=== PATIENT | male | born 1950 | race American Indian/Alaskan Native ===

== ENCOUNTER 2017-03-22 22:09 | Inpatient (IN) | payer MEDICARE ==
[2017-03-22 23:11] LABS: Hematocrit 49.2 % (35.5-45.6); Hemoglobin 15.7 gm/dl (11.8-15.2); Mean Corpuscular HGB Conc 32 % (32-34); Mean Corpuscular Hemoglobin 29 pg (28-32); Mean Corpuscular Volume 92 fl (84-94); Platelet Count 243 K/mm3 (140-440); Red Blood Count 5.34 M/mm3 (3.65-5.03); Red Cell Distribution Width 14.3 % (13.2-15.2); White Blood Count 11.1 K/mm3 (4.5-11.0)
[2017-03-22 23:12] LABS: Alanine Aminotransferase 22 units/L (7-56); Albumin 4.1 g/dL (3.9-5); Albumin/Globulin Ratio 0.9 %; Alkaline Phosphatase 71 units/L (35-129); Anion Gap 18 mmol/L; BUN/Creatinine Ratio 12; Blood Urea Nitrogen 14 mg/dL (9-20); Calcium 8.8 mg/dL (8.4-10.2); Carbon Dioxide 26 mmol/L (22-30); Chloride 101.7 mmol/L (98-107); Glucose 111 mg/dL (75-100); Lipase 9 units/L (13-60); Potassium 4.3 mmol/L (3.6-5.0); Sodium 141 mmol/L (137-145); Total Protein 8.8 g/dL (6.3-8.2)
[2017-03-22 23:57] LABS: Basophils % (Manual) 0 % (0.0-1.8); Blastocytes % (Manual) 0 %; Eosinophils % (Manual) 0 % (0.0-4.3); Platelet Estimate Consistent w Auto; RBC Morphology Normal
[2017-03-22 23:58] LABS: Diff Status Complete
[2017-03-23 01:33] LABS: Bilirubin,Urine NEG (Negative); Blood,Urine SM (Negative); Ketones,Urine NEG (Negative); Leukocyte Esterase,Urine SM (Negative); Mucus,Urine 1+ /HPF; Nitrite,Urine NEG (Negative); Urobilinogen,Urine < 2.0 mg/dL (<2.0)
[2017-03-23] MEDS ORDERED: ULTRAM PO ONE (03:29)
[2017-03-23] MEDS ORDERED: TORADOL IM ONE (03:29)
[2017-03-23] MEDS ORDERED: KEFLEX PO ONE (03:30)
--- NOTE | 2017-03-23 04:56 | Cat Scan Report ---
FINAL REPORT EXAM: CT ABDOMEN PELVIS WO CON HISTORY: anterior abdominal swelling TECHNIQUE: CT images obtained through the Abdomen and Pelvis without contrast. Transaxial,coronal and sagittal reformats are provided. PRIORS: None. FINDINGS: Imaged intrathoracic contents are unremarkable. Kidneys are normal in size, axis and position. No hydronephrosis or nephrolithiasis. The ureters are normal in course and caliber. No stones are seen within the urinary bladder. The liver, gallbladder, pancreas, spleen, and adrenal glands demonstrate an unremarkable noncontrast appearance. A periumbilical ventral hernia measuring up to 3.5 cm at the neck is present on axial series 3, image 104. Small bowel enters and exits the hernia sac. Proximal to the hernia there are multiple dilated fluid-filled loops of small bowel without adjacent edema identified. No pneumoperitoneum or ascites. Decompressed terminal ileum and colon. Normal appendix. No lymphadenopathy. Aorta is normal in course and caliber. Superficial soft tissues are otherwise unremarkable. No acute or aggressive appearing skeletal findings. IMPRESSION: Small-bowel obstruction with transition point in a periumbilical hernia measuring up to 3.5 cm at the neck. No pneumoperitoneum. Dr. Navarro discussed findings with Dr. Valdovinos at [address] on 03/23/2017 immediately following the examination.
[2017-03-23] MEDS ORDERED: DILAUDID IV ONE (04:58)
[2017-03-23] MEDS ORDERED: ATIVAN IV ONE (04:58)
[2017-03-23] MEDS ORDERED: DILAUDID ONE ×2 (05:03→07:22)
--- NOTE | 2017-03-23 05:23 | Emergency Department Report ---
ED Abdominal Pain HPI - General Chief Complaint: Abdominal Pain Stated Complaint: ABD PAIN Time Seen by Provider: 03/23/17 03:00 Source: patient Mode of arrival: Ambulatory Limitations: No Limitations - History of Present Illness Initial Comments: 66-year-old male with no past medical history presents also complains of right- sided abdominal pain and swelling. Patient has had swelling to his abdomen to the area to the right superior to his umbilicus test 6-7 months. The swelling increased and became harder over the last 3 days. Patient has been experiencing intermittent crampy abdominal pain for the last 3 days but denies nausea or vomiting. Patient is reporting that he has not had a bowel movement 3 days but did have a bowel movement last night. No complaints of fever or previous time surgeries. Patient has not seen a physician and a long time and presents here with elevated blood pressure. Severity scale (0 -10): 5 - Related Data Home Medications Medication Instructions Recorded Confirmed Last Taken No Known Home Medications [No 03/23/17 03/23/17 Unknown Reported Home Medications] Allergies Allergy/AdvReac Type Severity Reaction Status Date / Time No Known Allergies Allergy Unverified 03/22/17 22:14 ED Review of Systems ROS: Stated complaint: ABD PAIN Other details as noted in HPI Comment: All other systems reviewed and negative Other: Constitutional: No fevers chills Eyes: No eye pain visual changes ENT: No ear pain or throat pain Neck: Denies pain Respiratory: Denies cough wheezing shortness of breath Cardiovascular: Denies chest pain, palpitations, syncope GI: as per hpi : Denies dysuria Musculoskeletal: Denies back pain, joint swelling Skin: Denies rash, lesions, erythema Neurologic: Denies headache, numbness, weakness Psychiatric: Denies suicidal ideation, hallucinations ED Past Medical Hx - Past Medical History Previous Medical History?: No - Surgical History Past Surgical History?: No - Social History Smoking Status: Never Smoker Substance Use Type: None - Medications Home Medications: Home Medications Medication Instructions Recorded Confirmed Last Taken Type No Known Home Medications [No 03/23/17 03/23/17 Unknown History Reported Home Medications] ED Physical Exam - General Limitations: No Limitations - Other Other exam information: General: No limitations, patient is alert in no acute distress Head exam: Atraumatic, normocephalic Eyes exam: Normal appearance, pupils equal reactive to light, extraocular movements intact ENT: Moist mucous membrane, normal oropharynx Neck exam: Normal inspection, full range of motion, no meningismus nontender Respiratory exam: Clear to auscultation bilateral, no wheezes, rales, crackles Cardiovascular: Normal rate and rhythm, normal heart sounds Abdomen: Soft, nondistended, palpable hernia to the right superior aspect of the umbilicus that is firm. Minimal tenderness to palpation. Unable to reduce initially Extremity: Full range of motion normal inspection no deformity Back: Normal Inspection, full range of motion, no tenderness Neurologic: Alert, oriented x3, cranial nerves intact, no motor or sensory deficit Psychiatric: normal affect, normal mood Skin: Warm, dry, intact ED Course Vital Signs 03/22/17 03/23/17 03/23/17 22:13 04:28 06:39 Temperature 98.6 F 98.3 F 98.2 F Pulse Rate 93 H 87 85 Respiratory 18 18 16 Rate Blood Pressure 190/84 Blood Pressure 155/87 140/85 [Right] O2 Sat by Pulse 99 95 98 Oximetry 03/23/17 03/23/17 03/23/17 09:41 09:45 09:50 Temperature 97.5 F L Pulse Rate 79 78 76 Respiratory 14 16 16 Rate Blood Pressure 143/70 143/70 146/68 Blood Pressure [Right] O2 Sat by Pulse 94 95 95 Oximetry 03/23/17 03/23/17 03/23/17 09:55 10:00 10:15 Temperature 98.0 F Pulse Rate 75 72 77 Respiratory 16 16 18 Rate Blood Pressure 140/79 138/66 139/74 Blood Pressure [Right] O2 Sat by Pulse 97 97 99 Oximetry 03/23/17 03/23/17 03/23/17 10:30 10:45 10:50 Temperature 98.4 F Pulse Rate 72 78 75 Respiratory 18 18 18 Rate Blood Pressure 148/71 146/75 143/73 Blood Pressure [Right] O2 Sat by Pulse 99 98 95 Oximetry 03/23/17 03/23/17 03/23/17 11:10 11:16 11:48 Temperature 98.7 F 98.7 F 97.3 F L Pulse Rate 73 73 Respiratory 18 18 18 Rate Blood Pressure 139/73 139/73 Blood Pressure 139/73 [Right] O2 Sat by Pulse 96 96 Oximetry 03/23/17 03/23/17 03/23/17 14:55 15:57 19:13 Temperature 98.6 F 98.8 F Pulse Rate 74 76 73 Respiratory 18 20 Rate Blood Pressure 170/82 Blood Pressure 116/44 [Right] O2 Sat by Pulse 95 92 Oximetry 03/23/17 03/23/17 03/23/17 22:17 22:20 22:21 Temperature 99.0 F Pulse Rate 71 69 Respiratory 20 18 Rate Blood Pressure 141/65 Blood Pressure [Right] O2 Sat by Pulse 94 96 Oximetry - Reevaluation(s) Reevaluation #1: 03/23/17 05:28 CT performed to confirm indeed a patient has a hernia. A bowel loop was identified at the umbilical hernia causing secondary signs of bowel obstruction. Patient medicated with Ativan 0.5 mg and Dilaudid 0.5 mg. Firm pressure held and I was able to fully reduce hernia with resolution and abdominal discomfort. - Consultations Consultation #1: 03/23/17 05:[address] Samaniego prior to second reduction attempt. The patient was medicated I was able to reduce umbilical hernia. Attempted to re-page Danette and still awaiting callback. Consultation #2: 03/23/17 06:[address] Samaniego called back. I have not informed hospitalist of admission at this time because patient did not require urgent surgery. This used to the discretion of the surgeon. Dr Panchal informed to treat patient with Keflex for urinary leukocytosis if the patient is discharged home otherwise , hospitalist will need to be informed of admission. ED Medical Decision Making - Lab Data Result diagrams: 03/22/17 22:32 03/22/17 22:32 Lab Results 03/22/17 03/22/17 03/23/17 Range/Units 22:32 22:32 01:14 WBC 11.1 H (4.5-11.0) K/mm3 RBC 5.34 H (3.65-5.03) M/mm3 Hgb 15.7 H (11.8-15.2) gm/dl Hct 49.2 H (35.5-45.6) % MCV 92 (84-94) fl MCH 29 (28-32) pg MCHC 32 (32-34) % RDW 14.3 (13.2-15.2) % Plt Count 243 (140-440) K/mm3 Lymph # Finish Off Operator Add Manual Diff Complete Total Counted 100 Seg Neutrophils % Finish Off Operator Seg Neuts % (Manual) 35.0 L (40.0-70.0) % Band Neutrophils % 0 % Lymphocytes % (Manual) 55.0 H (13.4-35.0) % Reactive Lymphs % (Man) 0 % Monocytes % (Manual) 10.0 H (0.0-7.3) % Eosinophils % (Manual) 0 (0.0-4.3) % Basophils % (Manual) 0 (0.0-1.8) % Metamyelocytes % 0 % Myelocytes % 0 % Promyelocytes % 0 % Blast Cells % 0 % Nucleated RBC % Not Reportable Seg Neutrophils # Man 3.9 (1.8-7.7) K/mm3 Band Neutrophils # 0.0 K/mm3 Lymphocytes # (Manual) 6.1 H (1.2-5.4) K/mm3 Abs React Lymphs (Man) 0.0 K/mm3 Monocytes # (Manual) 1.1 H (0.0-0.8) K/mm3 Eosinophils # (Manual) 0.0 (0.0-0.4) K/mm3 Basophils # (Manual) 0.0 (0.0-0.1) K/mm3 Metamyelocytes # 0.0 K/mm3 Myelocytes # 0.0 K/mm3 Promyelocytes # 0.0 K/mm3 Blast Cells # 0.0 K/mm3 WBC Morphology Not Reportable Hypersegmented Neuts Not Reportable Hyposegmented Neuts Not Reportable Hypogranular Neuts Not Reportable Smudge Cells Not Reportable Toxic Granulation Not Reportable Toxic Vacuolation Not Reportable Dohle Bodies Not Reportable Pelger-Huet Anomaly Not Reportable Brodie Rods Not Reportable Platelet Estimate Consistent w auto Clumped Platelets Not Reportable Plt Clumps, EDTA Not Reportable Large Platelets Not Reportable Giant Platelets Not Reportable Platelet Satelliting Not Reportable Plt Morphology Comment Not Reportable RBC Morphology Normal Dimorphic RBCs Not Reportable Polychromasia Not Reportable Hypochromasia Not Reportable Poikilocytosis Not Reportable Anisocytosis Not Reportable Microcytosis Not Reportable Macrocytosis Not Reportable Spherocytes Not Reportable Pappenheimer Bodies Not Reportable Sickle Cells Not Reportable Target Cells Not Reportable Tear Drop Cells Not Reportable Ovalocytes Not Reportable Helmet Cells Not Reportable Martins-Bayside Bodies Not Reportable [place] Rings Not Reportable [place] Cells Not Reportable Bite Cells Not Reportable Crenated Cell Not Reportable Elliptocytes Not Reportable Acanthocytes (Spur) Not Reportable Rouleaux Not Reportable Hemoglobin C Crystals Not Reportable Schistocytes Not Reportable Malaria parasites Not Reportable Silvano Bodies Not Reportable Hem Pathologist Commnt No Sodium 141 (137-145) mmol/L Potassium 4.3 (3.6-5.0) mmol/L Chloride 101.7 (98-107) mmol/L Carbon Dioxide 26 (22-30) mmol/L Anion Gap 18 mmol/L BUN 14 (9-20) mg/dL Creatinine 1.2 (0.8-1.5) mg/dL Estimated GFR > 60 ml/min BUN/Creatinine Ratio 12 % Glucose 111 H (75-100) mg/dL Calcium 8.8 (8.4-10.2) mg/dL Total Bilirubin 0.40 (0.1-1.2) mg/dL AST 25 (5-40) units/L ALT 22 (7-56) units/L Alkaline Phosphatase 71 (35-129) units/L Total Protein 8.8 H (6.3-8.2) g/dL Albumin 4.1 (3.9-5) g/dL Albumin/Globulin Ratio 0.9 % Lipase 9 L (13-60) units/L Urine Color Yellow (Yellow) Urine Turbidity Clear (Clear) Urine pH 5.0 (5.0-7.0) Ur Specific [place] 1.027 (1.003-1.030) Urine Protein 100 mg/dl (Negative) mg/dL Urine Glucose (UA) Neg (Negative) mg/dL Urine Ketones Neg (Negative) mg/dL Urine Blood Sm (Negative) Urine Nitrite Neg (Negative) Urine Bilirubin Neg (Negative) Urine Urobilinogen < 2.0 (<2.0) mg/dL Ur Leukocyte Esterase Sm (Negative) Urine WBC (Auto) 22.0 H (0.0-6.0) /HPF Urine RBC (Auto) 3.0 (0.0-6.0) /HPF U Epithel Cells (Auto) 5.0 (0-13.0) /HPF Hyaline Casts 2 /LPF Urine Mucus 1+ /HPF - Radiology Data Radiology results: report reviewed (CT abdomen and pelvis without contrast: small bowel obstruction with transition point in the. Umbilical hernia measured 3.5 at the neck. No pneumoperitoneum) - Medical Decision Making s/o to Dr Panchal. awaiting surgeon dispo Discharged patient would need Keflex for UTI and recommend Norvasc 5 mg for elevated blood pressure. Outpatient follow-up will be needed - Differential Diagnosis lipoma, hernia incarcerated versus strangulated Critical Care Time: No Critical care attestation.: If time is entered above; I have spent that time in minutes in the direct care of this critically ill patient, excluding procedure time. ED Disposition Clinical Impression: Periumbilical hernia, HTN (hypertension) Disposition: OP ADMIT IP TO THIS HOSP Is pt being admited?: Yes Condition: Stable Time of Disposition: 06:24
--- NOTE | 2017-03-23 07:12 | Anesthesia Consultation ---
Anesthesia Consult and Med Hx Date of service: 03/23/17 - Airway Anesthetic Teeth Evaluation: Good ROM Head & Neck: Adequate Mental/Hyoid Distance: Adequate Mallampati Class: Class II Intubation Access Assessment: Probably Good - Pulmonary Exam CTA: Yes - Cardiac Exam Cardiac Exam: RRR - Pre-Operative Health Status ASA Pre-Surgery Classification: ASA2 Proposed Anesthetic Plan: General - Pulmonary Hx Smoking: Yes - Cardiovascular System Hx Hypertension: No - Endocrine Hx Non-Insulin Dependent Diabetes: No - Other Systems Hx Obesity: Yes
[2017-03-23] MEDS ORDERED: DILAUDID IV PRN (07:13)
--- NOTE | 2017-03-23 07:13 | Anesthesia Day of Surgery ---
Anesthesia Day of Surgery - Day of Surgery Patient Examined: Yes Patient H&P Reviewed: Yes Patient is NPO: Yes
[2017-03-23] MEDS ORDERED: XYLOCAINE MPF 2% ONE (07:22)
[2017-03-23] MEDS ORDERED: NACL 0.9% 1000 ML 1,000 ML ONE (07:22)
[2017-03-23] MEDS ORDERED: DIPRIVAN 10 MG/ML IV ONE (07:22)
[2017-03-23] MEDS ORDERED: ZEMURON IV ONE (07:22)
[2017-03-23] MEDS ORDERED: ZOFRAN IV PRN ×2 (07:30→11:26)
[2017-03-23] MEDS ORDERED: ANCEF ONE (07:50)
--- NOTE | 2017-03-23 08:59 | History and Physical Report ---
ADMITTING DIAGNOSIS: Small-bowel obstruction secondary to incarcerated ventral hernia. HISTORY OF PRESENT ILLNESS: The patient tires 66-year-old gentleman who is somewhat of a poor historian. States he has been complaining of abdominal pain thus the reason for his arrival to the ER. PAST MEDICAL HISTORY: He states he has had no past medical history. PAST SURGICAL HISTORY: Also negative. ALLERGIES: No known allergies. MEDICATIONS: No medications. FAMILY HISTORY: Negative. SOCIAL HISTORY: Smokes a pack a day for approximately 40 years. Denies any ethanol intake. REVIEW OF SYSTEMS: Noncontributory. PHYSICAL EXAMINATION: GENERAL: At this time reveals the patient's power to be awake, alert, cooperative, in moderate discomfort, but no acute distress. VITAL SIGNS: Shown him to be afebrile with a temperature of 98.2, blood pressure 140/85, pulse of 85, respirations of 16. HEENT: Pupils are equal and reactive to light and accommodation. Sclerae is nonicteric. NECK: Supple, no thyromegaly or adenopathy. CHEST: Lungs clear to auscultation and percussion. HEART: Normal sinus rhythm. No gross murmurs. ABDOMEN: Reveals an incarcerated ventral hernia approximately 3-4 cm above the umbilicus. However, I was able to reduce the hernia on gentle deep palpation. Bowel sounds are present. EXTREMITIES: Show range of motion x 4, no edema or cyanosis. NEUROLOGIC: Grossly within normal limits. LABORATORY DATA: Lab work at present includes a CBC which shows a white count of 11.1, H and H is 15 and 49. Electrolytes are essentially within normal limits. LFTs are also essentially normal. A CT scan of the abdomen was performed, which revealed an incarcerated ventral hernia with small bowel obstruction. IMPRESSION: Incarcerated hernia, which I have just reduced. PLAN: To proceed with emergency diagnostic laparoscopy. We will inspect the bowel. Also we will proceed with laparoscopic ventral hernia repair with mesh, possible open exploratory laparotomy and hernia repair. Also, possible bowel resection. Risks, indications, and complications have been reviewed with the patient who understands and has signed his consent. JOB# [id number] FP/NTS
[2017-03-23] MEDS ORDERED: ROBINUL ONE (09:08)
[2017-03-23] MEDS ORDERED: MARCAINE-EPI/PF 0.5%-1:200,000 INFILTRATI ONE ×2 (09:08→09:11)
[2017-03-23] MEDS ORDERED: ZOFRAN ONE (09:08)
[2017-03-23] MEDS ORDERED: NEOSTIGMINE ONE (09:08)
[2017-03-23] MEDS ORDERED: DECADRON ONE (09:09)
[2017-03-23] MEDS ORDERED: MARCAINE-EPI 0.5%-1:200,000 INFILTRATI ONE (09:30)
--- NOTE | 2017-03-23 10:27 | Post Anesthesia Evaluation ---
- Post Anesthesia Evaluation Patient Participated: Yes Airway Patent: Yes Stable Respiratory Function: Yes Nausea/Vomiting: No Temp > 96.8F: Yes Pain Manageable: Yes Adequeate Hydration: Yes Anesthesia Complications: No Block Receding Appropriately: Not Applicable Patient on Ventilator: No
--- NOTE | 2017-03-23 10:56 | Operative Report ---
PREOPERATIVE DIAGNOSIS: Incarcerated ventral hernia. POSTOPERATIVE DIAGNOSIS: Incarcerated ventral hernia. PROCEDURE: 1. Diagnostic laparoscopy. 2. Reduction of incarcerated ventral hernia. 3. Partial omentectomy. 4. Ventral hernia repair with mesh. SURGEON: Blas Samaniego M.D. ANESTHESIA: General. ESTIMATED BLOOD LOSS: Minimal. DRAINS: None. COMPLICATIONS: None. DESCRIPTION OF PROCEDURE: The patient was taken to the operating room, prepped and draped in usual sterile fashion. A Veress needle was inserted and CO2 insufflation begun. A 5 mm trocar was then inserted and camera inserted. Inspection of the area revealed an incarcerated ventral hernia, which involved omentum. Apparently on CT scan, the hernia also involved small bowel causing partial bowel obstruction, but I was able to reduce this preoperatively. The bowel was then carefully inspected and noted to be pink with good peristalsis. Two other 5 mm ports were then inserted. Harmonic scalpel used to slowly dissect the omentum. There was a fairly large portion of omentum that was incarcerated and eventually an open incision had to be made anteriorly to remove all the incarcerated omentum. This was sent as a specimen along with portions of the hernia sac. Once again after completion of dissecting the omentum, a midline incision was made, omentum was removed. This required more extensive dissection with electrocautery in the subcutaneous area down to the fascia. A #1 Nurolon sutures were then used to repair the hernia anteriorly. The middle portions of the sutures were left open so that a 10 mm trocar could be reinserted. Ventralex mesh was then placed through the trocar and slowly brought back snug to the peritoneum. Two other final sutures anteriorly were then close to complete a seal. Abdomen was once again reinflated. The mesh was tacked throughout the peritoneum with absorbable tackers. Once again, the intraabdominal omentum and site of dissection was inspected. No bleeding or oozing noted. The bowel was also noted to be within normal limits. The 5 mm trocars were then removed under direct visualization. The final 5 mm port was used to expel the CO2 and the trocar removed. The skin at all port sites was closed with subcuticular 4-0 Vicryl. A 0.5% Marcaine was infiltrated over the port site for postoperative pain relief. The ventral hernia site subcutaneous was also closed with interrupted 3-0 Vicryl and the skin closed subcuticularly. Fluffs and pressure dressings applied. Abdominal binder will also be placed. The patient tolerated the procedure well and left OR in stable condition. JOB# [id number] JULIO/PANDA
[2017-03-23] MEDS ORDERED: MORPHINE IV PRN (11:26)
[2017-03-23] MEDS: D5W/0.45% NACL/KCL 30 MEQ 30 MEQ/1,000 ML BAG IV SCH ×2 (13:38→21:48)
[2017-03-23] MEDS: ANCEF/NS 1 GM/50 ML 1 GM/50 ML BAG IV SCH (16:00)
[2017-03-24] MEDS: ANCEF/NS 1 GM/50 ML 1 GM/50 ML BAG IV SCH (00:50)
[2017-03-24 04:01] LABS: Basophils % (Auto) 0.2 % (0.0-1.8); Eosinophils % (Auto) 0.1 % (0.0-4.3); Hematocrit 44.1 % (35.5-45.6); Hemoglobin 14.5 gm/dl (11.8-15.2); Mean Corpuscular HGB Conc 33 % (32-34); Mean Corpuscular Hemoglobin 30 pg (28-32); Mean Corpuscular Volume 92 fl (84-94); Platelet Count 202 K/mm3 (140-440); Red Blood Count 4.81 M/mm3 (3.65-5.03); Red Cell Distribution Width 14.9 % (13.2-15.2); White Blood Count 13.8 K/mm3 (4.5-11.0)
[2017-03-24 04:20] LABS: Alanine Aminotransferase 16 units/L (7-56); Albumin 3.4 g/dL (3.9-5); Albumin/Globulin Ratio 0.8 %; Alkaline Phosphatase 59 units/L (35-129); Anion Gap 15 mmol/L; BUN/Creatinine Ratio 15; Blood Urea Nitrogen 16 mg/dL (9-20); Calcium 8.1 mg/dL (8.4-10.2); Carbon Dioxide 23 mmol/L (22-30); Chloride 104.3 mmol/L (98-107); Glucose 119 mg/dL (75-100); Potassium 4.5 mmol/L (3.6-5.0); Sodium 138 mmol/L (137-145); Total Protein 7.6 g/dL (6.3-8.2)
[2017-03-24] MEDS: D5W/0.45% NACL/KCL 30 MEQ 30 MEQ/1,000 ML BAG IV SCH ×2 (06:11→18:10)
--- NOTE | 2017-03-24 09:19 | Consultation ---
<MILVIA VOGT - Last Filed: 03/24/17 09:59> History of Present Illness - Reason for Consult Consult date: 03/24/17 hypertension Requesting physician: KYA FREGOSO - History of Present Illness Patient is a 66 years old black Tracie Mamie with past medical history of hypertension, who was consulted form general surgery to us for medical management of hypertension. Patient has had diagnostic laparoscopy, reduction of incarcerated venteral hernia. partial omentectomy and ventral hernia repair with mesh.This procedure occurred on 03/23/2017. Patient tolerated the procedure well and postoperatively, he is stable. Patient denies fever, chills chest pain, headache. Patient rates surgical area pain and rates her pain 3/10 at present time. Past History Past Medical History: hypertension, other (Ventral hernia ) Past Surgical History: No surgical history Social history: smoking. denies: alcohol abuse Family history: diabetes, hypertension Medications and Allergies Allergies Allergy/AdvReac Type Severity Reaction Status Date / Time No Known Allergies Allergy Unverified 03/22/17 22:14 Home Medications Medication Instructions Recorded Confirmed Last Taken Type No Known Home Medications [No 03/23/17 03/23/17 Unknown History Reported Home Medications] Active Meds: Active Medications Potassium Chloride/Dextrose/Sod Cl (D5w/0.45% Nacl/Kcl 30 Meq) 30 meq in 1,000 mls @ 125 mls/hr IV DIRECT VINAY Last Admin: 03/24/17 06:11 Dose: 125 mls/hr Morphine Sulfate (Morphine) 3 mg IV Q3H PRN PRN Reason: Pain, Moderate (4-6) Ondansetron HCl (Zofran) 4 mg IV Q4H PRN PRN Reason: N/V unrelieved by Reglan Review of Systems Constitutional: no weight loss, no weight gain, no fever, no chills, no sweats Ears, nose, mouth and throat: no decreased hearing, no nose pain, no nasal congestion, no nasal discharge Cardiovascular: no chest pain, no orthopnea, no palpitations, no rapid/ irregular heart beat, no edema Respiratory: no cough with sputum, no excessive sputum, no hemoptysis, no shortness of breath Gastrointestinal: no nausea, no vomiting, no diarrhea, no constipation, no change in bowel habits Genitourinary Male: no flank pain, no discharge, no urinary frequency Rectal: no incontinence, no bleeding Musculoskeletal: no neck stiffness, no shooting arm pain, no arm numbness/ tingling Integumentary: no rash, no pruritis, no redness, no sores Neurological: no paralysis, no weakness, no parathesias, no numbness Psychiatric: no anxiety, no memory loss, no change in sleep habits Endocrine: no polyphagia, no excessive thirst, no polydipsia, no polyuria Hematologic/Lymphatic: no easy bruising, no easy bleeding Allergic/Immunologic: no urticaria, no allergic rhinitis Exam - Constitutional Vitals: Temp Pulse Resp BP Pulse Ox 98.2 F 71 18 140/67 95 03/24/17 08:13 03/24/17 09:11 03/24/17 08:13 03/24/17 09:09 03/24/17 09:11 General appearance: Present: no acute distress - EENT Eyes: Present: PERRL ENT: hearing intact - Neck Neck: Present: supple - Respiratory Respiratory effort: normal Respiratory: bilateral: CTA - Cardiovascular Heart rate: 71 Rhythm: regular Heart Sounds: Present: S1 & S2 - Abdominal General gastrointestinal: Present: soft, tender, other (surgical incision with gauze dressing) Localized gastrointestinal: tender: RUQ, RLQ Male genitourinary: Present: deferred - Rectal Rectal Exam: deferred - Integumentary Integumentary: Present: clear, warm, dry - Musculoskeletal Musculoskeletal: strength equal bilaterally - Psychiatric Psychiatric: appropriate mood/affect - Neurologic Neurologic: CNII-XII intact - Allied Health Allied health notes reviewed: nursing Results - Labs CBC & Chem 7: 03/24/17 03:26 03/24/17 03:26 Labs: Abnormal lab results 03/24/17 03/24/17 Range/Units 03:26 03:26 WBC 13.8 H (4.5-11.0) K/mm3 [place] % (Auto) 8.7 H (0.0-7.3) % [place] # 1.2 H (0.0-0.8) K/mm3 Seg Neutrophils % 71.0 H (40.0-70.0) % Seg Neutrophils # 9.8 H (1.8-7.7) K/mm3 Glucose 119 H (75-100) mg/dL Calcium 8.1 L (8.4-10.2) mg/dL Albumin 3.4 L (3.9-5) g/dL Assessment and Plan Patient is a 66 years old Togol[place] female with past medical history of hypertension, , who was consulted form general surgery to us for medical management of hypertension. Patient has had diagnostic laparoscopy, reduction of incarcerated venteral hernia. partial omentectomy and ventral hernia repair with mesh. ASSESSMENT/PLAN Hypertension Started on Norvasc 5 mg daily IV hydralazine for SBP> 160 Closely monitor blood pressure S/P ventral hernia repair with mesh Patient POD #1 Managed by General surgery Morbid obesity with BMI>40 Discussed about the importance of weight reduction, physical exercise, low-fat diet reducing intake of high-fat foods to improve cardiovascular disease. Tobacco abuse Smoking cessation counseling done. Patient strongly advised to quit. DVT prophylaxis Lovenox <MALOU HUITRON - Last Filed: 03/25/17 09:22> Medications and Allergies Active Meds: Active Medications Acetaminophen/Hydrocodone Bitart ([place] 5/325) 1 each PO Q4H PRN PRN Reason: Pain, Moderate (4-6) Amlodipine Besylate (Norvasc) 5 mg PO QDAY [facility] Last Admin: 03/24/17 18:30 Dose: Not Given Docusate Sodium (Colace) 100 mg PO BID [facility] Last Admin: 03/24/17 22:10 Dose: Not Given Enoxaparin Sodium (Lovenox) 40 mg SUB-Q QDAY@2200 [facility] Last Admin: 03/24/17 22:05 Dose: Not Given Potassium Chloride/Dextrose/Sod Cl (D5w/0.45% Nacl/Kcl 30 Meq) 30 meq in 1,000 mls @ 125 mls/hr IV DIRECT [facility] Last Admin: 03/25/17 03:49 Dose: 125 mls/hr Levofloxacin (Levaquin) 500 mg PO Q24HR [facility] Morphine Sulfate (Morphine) 3 mg IV Q3H PRN PRN Reason: Pain, Moderate (4-6) Ondansetron HCl (Zofran) 4 mg IV Q4H PRN PRN Reason: N/V unrelieved by Reglan Exam - Constitutional Vitals: Temp Pulse Resp BP Pulse Ox 99.5 F 66 20 148/73 96 03/25/17 07:40 03/25/17 07:41 03/25/17 07:40 03/25/17 07:40 03/25/17 07:41 Results - Labs CBC & Chem 7: 03/24/17 03:26 03/24/17 03:26 Assessment and Plan I saw and evaluated the patient. I agree with the findings and the plan of care as documented in the Nurse Practitioner's~note, with the following corrections and additions. ADD acute cystitis. Complex. Start on rocephin IV
--- NOTE | 2017-03-24 12:29 | Progress Note ---
Assessment and Plan POD #1 Pt feeling well. no specific compl Abd obese soft hypoactive BS Dressings dry stable ice chips & po meds ambulation Selected Entries 03/24/17 12:13 Temperature 98.9 F Pulse Rate 75 Respiratory 18 Rate Blood Pressure 141/68 [Right] Laboratory Tests 03/22/17 03/24/17 03/24/17 22:32 03:26 03:26 WBC 11.1 H 13.8 H Hgb 15.7 H 14.5 Hct 49.2 H 44.1 Sodium 138 Potassium 4.5 Chloride 104.3 Carbon Dioxide 23 BUN 16 Creatinine 1.1 Objective Vital Signs - 12hr 03/24/17 03/24/17 03/24/17 04:20 04:23 08:13 Temperature 98.6 F 98.2 F Pulse Rate 103 H Respiratory 18 18 Rate Blood Pressure 146/68 140/67 Blood Pressure [Right] O2 Sat by Pulse 97 Oximetry 03/24/17 03/24/17 03/24/17 09:09 09:11 12:10 Temperature Pulse Rate 71 66 Respiratory Rate Blood Pressure Blood Pressure 140/67 [Right] O2 Sat by Pulse 95 100 Oximetry 03/24/17 12:13 Temperature 98.9 F Pulse Rate 75 Respiratory 18 Rate Blood Pressure Blood Pressure 141/68 [Right] O2 Sat by Pulse Oximetry - Labs 03/24/17 03:26 03/24/17 03:26 Diabetes panel 03/24/17 Range/Units 03:26 Sodium 138 (137-145) mmol/L Potassium 4.5 (3.6-5.0) mmol/L Chloride 104.3 (98-107) mmol/L Carbon Dioxide 23 (22-30) mmol/L BUN 16 (9-20) mg/dL Creatinine 1.1 (0.8-1.5) mg/dL Glucose 119 H (75-100) mg/dL Calcium 8.1 L (8.4-10.2) mg/dL AST 20 (5-40) units/L ALT 16 (7-56) units/L Alkaline Phosphatase 59 (35-129) units/L Total Protein 7.6 (6.3-8.2) g/dL Albumin 3.4 L (3.9-5) g/dL Calcium panel 03/24/17 Range/Units 03:26 Calcium 8.1 L (8.4-10.2) mg/dL Albumin 3.4 L (3.9-5) g/dL Pituitary panel 03/24/17 Range/Units 03:26 Sodium 138 (137-145) mmol/L Potassium 4.5 (3.6-5.0) mmol/L Chloride 104.3 (98-107) mmol/L Carbon Dioxide 23 (22-30) mmol/L BUN 16 (9-20) mg/dL Creatinine 1.1 (0.8-1.5) mg/dL Glucose 119 H (75-100) mg/dL Calcium 8.1 L (8.4-10.2) mg/dL Adrenal panel 03/24/17 Range/Units 03:26 Sodium 138 (137-145) mmol/L Potassium 4.5 (3.6-5.0) mmol/L Chloride 104.3 (98-107) mmol/L Carbon Dioxide 23 (22-30) mmol/L BUN 16 (9-20) mg/dL Creatinine 1.1 (0.8-1.5) mg/dL Glucose 119 H (75-100) mg/dL Calcium 8.1 L (8.4-10.2) mg/dL Total Bilirubin 0.50 (0.1-1.2) mg/dL AST 20 (5-40) units/L ALT 16 (7-56) units/L Alkaline Phosphatase 59 (35-129) units/L Total Protein 7.6 (6.3-8.2) g/dL Albumin 3.4 L (3.9-5) g/dL
[2017-03-24] MEDS: COLACE PO SCH ×2 (15:25→22:10)
[2017-03-24] MEDS: NORVASC PO SCH (18:30)
[2017-03-24] MEDS: LOVENOX SUB-Q SCH ×2 (21:17→22:05)
[2017-03-25] MEDS: D5W/0.45% NACL/KCL 30 MEQ 30 MEQ/1,000 ML BAG IV SCH (03:49)
[2017-03-25] MEDS ORDERED: LEVAQUIN PO SCH (10:00)
[2017-03-25] MEDS: COLACE PO SCH ×2 (10:25→21:09)
[2017-03-25] MEDS: NORVASC PO SCH (10:25)
[2017-03-25] MEDS: ROCEPHIN/NS 1 GM/50 ML 1 GM/50 ML BAG IV SCH (10:26)
--- NOTE | 2017-03-25 11:19 | Progress Note ---
Assessment and Plan POD #2 Pt sitting in chair. feeling well. +flatus ambulated Abd soft. stable cl liq diet Selected Entries 03/25/17 03/25/17 07:40 07:41 Temperature 99.5 F Pulse Rate 66 Blood Pressure 148/73 Objective Vital Signs - 12hr 03/25/17 03/25/17 03/25/17 06:18 07:40 07:41 Temperature 99.6 F 99.5 F Pulse Rate 62 64 66 Respiratory 16 20 Rate Blood Pressure 148/73 Blood Pressure 137/54 [Right] O2 Sat by Pulse 97 96 96 Oximetry - Labs 03/24/17 03:26 03/24/17 03:26
--- NOTE | 2017-03-25 14:25 | Progress Note ---
Assessment and Plan Assessment and plan: Patient is a 66 years old female with past medical history of hypertension, , who was consulted form general surgery to us for medical management of hypertension. Patient has had diagnostic laparoscopy, reduction of incarcerated venteral hernia. partial omentectomy and ventral hernia repair with mesh. ASSESSMENT/PLAN Hypertension Continue Norvasc 5 mg daily IV hydralazine for SBP> 160 Closely monitor blood pressure S/P ventral hernia repair with mesh Patient POD #2 Managed by General surgery Morbid obesity with BMI>40 Discussed about the importance of weight reduction, physical exercise, low-fat diet reducing intake of high-fat foods to improve cardiovascular disease. Nutrition consult Tobacco abuse Smoking cessation counseling done. Patient strongly advised to quit. Acute cystitis. Complex. Start on rocephin IV Metal Health Illness Continue Psych management outpatient. DVT prophylaxis Lovenox Stable from Medical stand point for discharge History Interval history: Patient seen and examined in no acute distress. spoke to the sister, who states that the patient has multiple psych history and has been refusing medical care. Hospitalist Physical - Physical exam Narrative exam: VITAL SIGNS: Reviewed. GENERAL: The patient appeared well nourished and normally developed. Vital signs as documented. HEAD: No signs of head trauma. EYES: Pupils are equal. Extraocular motions intact. EARS: Hearing grossly intact. MOUTH: Oropharynx is normal. NECK: No adenopathy, no JVD. CHEST: Chest with clear breath sounds bilaterally. No wheezes, rales, or rhonchi. CARDIAC: Regular rate and rhythm. S1 and S2, without murmurs, gallops, or rubs. VASCULAR: No Edema. Peripheral pulses normal and equal in all extremities. ABDOMEN: surgical incision with gauze dressing, hypoactive BS. No drainage noted MUSCULOSKELETAL: Good range of motion of all major joints. Extremities without clubbing, cyanosis or edema. NEUROLOGIC EXAM: Alert and oriented x 3. No focal sensory or strength deficits. Speech normal. Follows commands. PSYCHIATRIC: Mood normal. SKIN: No rash or lesions. - Constitutional Vitals: Temp Pulse Resp BP Pulse Ox 99.5 F 67 20 141/60 97 03/25/17 13:00 03/25/17 12:59 03/25/17 07:40 03/25/17 12:59 03/25/17 12:59 General appearance: Present: no acute distress Results - Labs CBC & Chem 7: 03/24/17 03:26 03/24/17 03:26 Labs: Laboratory Last Values WBC 13.8 K/mm3 (4.5-11.0) H 03/24/17 03:26 RBC 4.81 M/mm3 (3.65-5.03) 03/24/17 03:26 Hgb 14.5 gm/dl (11.8-15.2) 03/24/17 03:26 Hct 44.1 % (35.5-45.6) 03/24/17 03:26 MCV 92 fl (84-94) 03/24/17 03:26 MCH 30 pg (28-32) 03/24/17 03:26 MCHC 33 % (32-34) 03/24/17 03:26 RDW 14.9 % (13.2-15.2) 03/24/17 03:26 Plt Count 202 K/mm3 (140-440) 03/24/17 03:26 Lymph % (Auto) 20.0 % (13.4-35.0) 03/24/17 03:26 [place] % (Auto) 8.7 % (0.0-7.3) H 03/24/17 03:26 Eos % (Auto) 0.1 % (0.0-4.3) 03/24/17 03:26 Baso % (Auto) 0.2 % (0.0-1.8) 03/24/17 03:26 Lymph # 2.8 K/mm3 (1.2-5.4) 03/24/17 03:26 [place] # 1.2 K/mm3 (0.0-0.8) H 03/24/17 03:26 Eos # 0.0 K/mm3 (0.0-0.4) 03/24/17 03:26 Baso # 0.0 K/mm3 (0.0-0.1) 03/24/17 03:26 Add Manual Diff Complete 03/22/17 22:32 Total Counted 100 03/22/17 22:32 Seg Neutrophils % 71.0 % (40.0-70.0) H 03/24/17 03:26 Seg Neuts % (Manual) 35.0 % (40.0-70.0) L 03/22/17 22:32 Band Neutrophils % 0 % 03/22/17 22:32 Lymphocytes % (Manual) 55.0 % (13.4-35.0) H 03/22/17 22:32 Reactive Lymphs % (Man) 0 % 03/22/17 22:32 Monocytes % (Manual) 10.0 % (0.0-7.3) H 03/22/17 22:32 Eosinophils % (Manual) 0 % (0.0-4.3) 03/22/17 22:32 Basophils % (Manual) 0 % (0.0-1.8) 03/22/17 22:32 Metamyelocytes % 0 % 03/22/17 22:32 Myelocytes % 0 % 03/22/17 22:32 Promyelocytes % 0 % 03/22/17 22:32 Blast Cells % 0 % 03/22/17 22:32 Nucleated RBC % Not Reportable 03/22/17 22:32 Seg Neutrophils # 9.8 K/mm3 (1.8-7.7) H 03/24/17 03:26 Seg Neutrophils # Man 3.9 K/mm3 (1.8-7.7) 03/22/17 22:32 Band Neutrophils # 0.0 K/mm3 03/22/17 22:32 Lymphocytes # (Manual) 6.1 K/mm3 (1.2-5.4) H 03/22/17 22:32 Abs React Lymphs (Man) 0.0 K/mm3 03/22/17 22:32 Monocytes # (Manual) 1.1 K/mm3 (0.0-0.8) H 03/22/17 22:32 Eosinophils # (Manual) 0.0 K/mm3 (0.0-0.4) 03/22/17 22:32 Basophils # (Manual) 0.0 K/mm3 (0.0-0.1) 03/22/17 22:32 Metamyelocytes # 0.0 K/mm3 03/22/17 22:32 Myelocytes # 0.0 K/mm3 03/22/17 22:32 Promyelocytes # 0.0 K/mm3 03/22/17 22:32 Blast Cells # 0.0 K/mm3 03/22/17 22:32 WBC Morphology Not Reportable 03/22/17 22:32 Hypersegmented Neuts Not Reportable 03/22/17 22:32 Hyposegmented Neuts Not Reportable 03/22/17 22:32 Hypogranular Neuts Not Reportable 03/22/17 22:32 Smudge Cells Not Reportable 03/22/17 22:32 Toxic Granulation Not Reportable 03/22/17 22:32 Toxic Vacuolation Not Reportable 03/22/17 22:32 Dohle Bodies Not Reportable 03/22/17 22:32 Pelger-Huet Anomaly Not Reportable 03/22/17 22:32 Brodie Rods Not Reportable 03/22/17 22:32 Platelet Estimate Consistent w auto 03/22/17 22:32 Clumped Platelets Not Reportable 03/22/17 22:32 Plt Clumps, EDTA Not Reportable 03/22/17 22:32 Large Platelets Not Reportable 03/22/17 22:32 Giant Platelets Not Reportable 03/22/17 22:32 Platelet Satelliting Not Reportable 03/22/17 22:32 Plt Morphology Comment Not Reportable 03/22/17 22:32 RBC Morphology Normal 03/22/17 22:32 Dimorphic RBCs Not Reportable 03/22/17 22:32 Polychromasia Not Reportable 03/22/17 22:32 Hypochromasia Not Reportable 03/22/17 22:32 Poikilocytosis Not Reportable 03/22/17 22:32 Anisocytosis Not Reportable 03/22/17 22:32 Microcytosis Not Reportable 03/22/17 22:32 Macrocytosis Not Reportable 03/22/17 22:32 Spherocytes Not Reportable 03/22/17 22:32 Pappenheimer Bodies Not Reportable 03/22/17 22:32 Sickle Cells Not Reportable 03/22/17 22:32 Target Cells Not Reportable 03/22/17 22:32 Tear Drop Cells Not Reportable 03/22/17 22:32 Ovalocytes Not Reportable 03/22/17 22:32 Helmet Cells Not Reportable 03/22/17 22:32 Martins-Reedy Bodies Not Reportable 03/22/17 22:32 Spivey Rings Not Reportable 03/22/17 22:32 [place] Cells Not Reportable 03/22/17 22:32 Bite Cells Not Reportable 03/22/17 22:32 Crenated Cell Not Reportable 03/22/17 22:32 Elliptocytes Not Reportable 03/22/17 22:32 Acanthocytes (Spur) Not Reportable 03/22/17 22:32 Rouleaux Not Reportable 03/22/17 22:32 Hemoglobin C Crystals Not Reportable 03/22/17 22:32 Schistocytes Not Reportable 03/22/17 22:32 Malaria parasites Not Reportable 03/22/17 22:32 Silvano Bodies Not Reportable 03/22/17 22:32 Hem Pathologist Commnt No 03/22/17 22:32 Sodium 138 mmol/L (137-145) 03/24/17 03:26 Potassium 4.5 mmol/L (3.6-5.0) 03/24/17 03:26 Chloride 104.3 mmol/L (98-107) 03/24/17 03:26 Carbon Dioxide 23 mmol/L (22-30) 03/24/17 03:26 Anion Gap 15 mmol/L 03/24/17 03:26 BUN 16 mg/dL (9-20) 03/24/17 03:26 Creatinine 1.1 mg/dL (0.8-1.5) 03/24/17 03:26 Estimated GFR > 60 ml/min 03/24/17 03:26 BUN/Creatinine Ratio 15 % 03/24/17 03:26 Glucose 119 mg/dL (75-100) H 03/24/17 03:26 Calcium 8.1 mg/dL (8.4-10.2) L 03/24/17 03:26 Total Bilirubin 0.50 mg/dL (0.1-1.2) 03/24/17 03:26 AST 20 units/L (5-40) 03/24/17 03:26 ALT 16 units/L (7-56) 03/24/17 03:26 Alkaline Phosphatase 59 units/L (35-129) 03/24/17 03:26 Total Protein 7.6 g/dL (6.3-8.2) 03/24/17 03:26 Albumin 3.4 g/dL (3.9-5) L 03/24/17 03:26 Albumin/Globulin Ratio 0.8 % 03/24/17 03:26 Lipase 9 units/L (13-60) L 03/22/17 22:32 Urine Color Yellow (Yellow) 03/23/17 01:14 Urine Turbidity Clear (Clear) 03/23/17 01:14 Urine pH 5.0 (5.0-7.0) 03/23/17 01:14 Ur Specific [place] 1.027 (1.003-1.030) 03/23/17 01:14 Urine Protein 100 mg/dl mg/dL (Negative) 03/23/17 01:14 Urine Glucose (UA) Neg mg/dL (Negative) 03/23/17 01:14 Urine Ketones Neg mg/dL (Negative) 03/23/17 01:14 Urine Blood Sm (Negative) 03/23/17 01:14 Urine Nitrite Neg (Negative) 03/23/17 01:14 Urine Bilirubin Neg (Negative) 03/23/17 01:14 Urine Urobilinogen < 2.0 mg/dL (<2.0) 03/23/17 01:14 Ur Leukocyte Esterase Sm (Negative) 03/23/17 01:14 Urine WBC (Auto) 22.0 /HPF (0.0-6.0) H 03/23/17 01:14 Urine RBC (Auto) 3.0 /HPF (0.0-6.0) 03/23/17 01:14 U Epithel Cells (Auto) 5.0 /HPF (0-13.0) 03/23/17 01:14 Hyaline Casts 2 /LPF 03/23/17 01:14 Urine Mucus 1+ /HPF 03/23/17 01:14 - Imaging and Cardiology CT scan - abdomen: image reviewed ([facility]BO)
[2017-03-25] MEDS: LOVENOX SUB-Q SCH (21:09)
[2017-03-25] MEDS: NORCO 5/325 PO PRN (21:09)
--- NOTE | 2017-03-26 09:06 | Progress Note ---
Assessment and Plan - Patient Problems (1) HTN (hypertension) Status: Chronic Qualifiers: Hypertension type: essential hypertension Qualified Code(s): I10 - Essential (primary) hypertension Plan to address problem: Cont Anti hypertensives (2) Periumbilical hernia Status: Acute Plan to address problem: Maybe discharged today Subjective Date of service: 03/26/17 Principal diagnosis: Umblical hernia repair- Interval history: postop doing well Objective - Constitutional Vitals: Vital Signs - 12hr 03/25/17 03/26/17 03/26/17 23:38 04:34 07:30 Temperature 99.4 F 99.3 F 99.4 F Pulse Rate 69 63 Respiratory 20 20 Rate Blood Pressure 164/79 149/75 O2 Sat by Pulse 94 93 Oximetry 03/26/17 03/26/17 07:36 07:37 Temperature Pulse Rate 64 64 Respiratory Rate Blood Pressure 146/78 O2 Sat by Pulse 94 96 Oximetry General appearance: Present: no acute distress, well-nourished - EENT Eyes: PERRL, EOM intact ENT: hearing intact, clear oral mucosa Ears: bilateral: normal - Neck Neck: supple, normal ROM - Respiratory Respiratory effort: normal Respiratory: bilateral: CTA - Breasts Breasts: normal - Cardiovascular Rhythm: regular Heart Sounds: Present: S1 & S2. Absent: gallop, rub Extremities: pulses intact, No edema, normal color, Full ROM - Gastrointestinal General gastrointestinal: Present: soft, non-tender, non-distended, normal bowel sounds - Genitourinary Male genitourinary: normal - Integumentary Integumentary: clear, warm, dry - Musculoskeletal Musculoskeletal: 1, strength equal bilaterally - Neurologic Neurologic: moves all extremities - Psychiatric Psychiatric: memory intact, appropriate mood/affect, intact judgment & insight - Labs CBC & Chem 7: 03/24/17 03:26 03/24/17 03:26
[2017-03-26] MEDS: NORVASC PO SCH (09:47)
[2017-03-26] MEDS: ROCEPHIN/NS 1 GM/50 ML 1 GM/50 ML BAG IV SCH (09:47)
[2017-03-26] MEDS: COLACE PO SCH (09:48)
--- NOTE | 2017-03-26 14:28 | Progress Note ---
Assessment and Plan POD #3 Pt feeling well without compl. Abd soft, non tender stable reg diet d/c today if diet lisa rto Friday Selected Entries 03/26/17 09:47 Pulse Rate 64 Blood Pressure 146/78 Laboratory Tests 03/24/17 03:26 WBC 13.8 H Hgb 14.5 Hct 44.1 Objective Vital Signs - 12hr 03/26/17 03/26/17 03/26/17 04:34 07:30 07:36 Temperature 99.3 F 99.4 F Pulse Rate 63 64 Respiratory 20 Rate Blood Pressure 149/75 146/78 O2 Sat by Pulse 93 94 Oximetry 03/26/17 03/26/17 07:37 09:47 Temperature Pulse Rate 64 64 Respiratory Rate Blood Pressure 146/78 O2 Sat by Pulse 96 Oximetry - Labs 03/24/17 03:26 03/24/17 03:26
--- NOTE | 2017-03-26 14:33 | Discharge Summary ---
Providers - Providers Date of Admission: 03/23/17 09:22 Attending physician: KYA FREGOSO 03/23/17 09:29 Consult to Physician [CONS] Routine Consulting Provider: KAMERON DRUMMOND Reason For Exam: medical management Place consult to:: yes Notified:: yes 03/24/17 12:30 Physical Therapy Evaluation and Treat [CONS] Routine Comment: Reason For Exam: ambulate down halls Primary care physician: NATURAL G[employer] BASIS TRADER Hospitalization Disposition: - TO HOME OR SELFCARE Core Measure Documentation - Palliative Care Palliative Care/ Comfort Measures: Not Applicable - Core Measures Any of the following diagnoses?: none Exam - Constitutional Vitals: Temp Pulse Resp BP Pulse Ox 99.4 F 64 20 146/78 96 03/26/17 07:30 03/26/17 09:47 03/26/17 04:34 03/26/17 09:47 03/26/17 07:37 Plan Activity: other (reg diet. may d/c if diet lisa. no lifting over 5 lbs x 3 wks. keep abd binder x 3 wks. surfak I po q am x 3. aleve I po q 6-8 hrs prn for breakthrough pain) Weight Bearing Status: Partial Weight Bearing Diet: regular Wound: keep clean and dry (x 3 days) Follow up with: KYA FREGOSO MD [Staff Physician] - 03/31/17 Prescriptions: HYDROcodone/APAP 5-325 [[place] 5/325] 1 each PO Q4HR PRN #20 tablet PRN Reason: Pain
[2017-03-26 17:44] VITALS: BP 125/53
[2017-03-26] MEDS: NORCO 5/325 PO PRN (17:58)
--- NOTE | 2017-03-26 23:35 | Discharge Summary ---
DISCHARGE DIAGNOSIS: Incarcerated ventral hernia. PROCEDURE: While in the hospital is emergency repair of incarcerated ventral hernia. HOSPITAL COURSE: The patient is a 66-year-old gentleman who presented to the Emergency Room with recent onset of abdominal pain. He stated he had no past medical history. A CT scan of the abdomen had been performed which revealed a small-bowel obstruction with a transition point incarcerated ventral hernia site. The patient was thus taken to surgery emergently where diagnostic laparoscopy with reduction of incarcerated ventral hernia was performed along with a partial omentectomy of the incarcerated omentum and ventral hernia repair with mesh. The patient's postoperative course was essentially stable. He was kept n.p.o. for the first 24-48 hours until his bowel sounds returned and he was passing flatus. The patient was started on a clear liquid diet yesterday, which he has tolerated well. This morning, the patient's abdomen is soft and nontender and he has no complaints. The patient will thus be advanced to a regular diet today and will tentatively be discharged today if his diet is well tolerated. The patient has been instructed to call me immediately if he has any evidence of nausea, vomiting, abdominal pain, or fever. If not, the patient will be followed up in the office on Friday. He has also been instructed to do no heavy lifting and to continue wearing his abdominal binder for the next 3 weeks. JOB# [id number] JULIO/PANDA
== END 2017-03-26 18:45 | disposition home or self-care (01) | DRG 354 ==
LOC: EDBD → ED 22:09 → 3A 03-23 09:22 → 3B-SURG 03-23 10:46
PROVIDERS: ADMIT Surgery; ATTEND Surgery
PROC: 0WUF4JZ Supplement Abdominal Wall with Synthetic Substitute, Percutaneous Endoscopic Approach (ICD-10-PCS; principal; 2017-03-23)
PROC: 0DBU4ZZ Excision of Omentum, Percutaneous Endoscopic Approach (ICD-10-PCS; 2017-03-23)
DX: K43.6 Other and unspecified ventral hernia with obstruction, without gangrene (principal); Z68.41 Body mass index [BMI] 40.0-44.9, adult; N30.00 Acute cystitis without hematuria; K42.9 Umbilical hernia without obstruction or gangrene; E66.01 Morbid (severe) obesity due to excess calories; I10 Essential (primary) hypertension; F17.200 Nicotine dependence, unspecified, uncomplicated; Z83.3 Family history of diabetes mellitus; Z82.49 Family history of ischemic heart disease and other diseases of the circulatory system; Z71.6 Tobacco abuse counseling
CPT/HCPCS: 36415; 74176; 80053; 81001; 83690; 85007; 85025; 88302; 88305; 96372; 96374; 96375; 99406; C1781; G8978-GP; G8980-GP; J0690; J0696; J1100; J1170; J1650; J1885; J2060; J2405; J2704; J2710; J7030